=== PATIENT | male | born 1985 | race Two or more races ===

== ENCOUNTER 2021-10-15 13:28 | Emergency (ER) | payer MEDICAID, OTHER ==
[~2021-10-15] VITALS: Ht 182.9 cm; Wt 68.0 kg
[2021-10-15] MEDS ORDERED: PERCOT PO (15:49)
[2021-10-15] MEDS ORDERED: ONDA-144 PO (15:49)
[2021-10-15 17:30] VITALS: BP 117/75
== END 2021-10-15 17:33 | disposition home or self-care (01) ==
LOC: ER 13:28
DX: S39.012A Strain of muscle, fascia and tendon of lower back, initial encounter (principal); W01.0XXA Fall on same level from slipping, tripping and stumbling without subsequent striking against object, initial encounter; Y93.89 Activity, other specified; Y92.89 Other specified places as the place of occurrence of the external cause; Y99.8 Other external cause status
CPT/HCPCS: 71045; 93005